=== PATIENT | male | born 1970 | race Caucasian/White ===

== ENCOUNTER → 2020-05-28 | Outpatient (CLI) | payer OTHER, SELFPAY ==
[~2020-05-28] MED LIST: ASPIR-LOW81 MG PO; FLECAINIDE ACET50 MG PO; FLONASE 0.05% N16 GM; HYDROCHLOROTH12.5 MG PO; METAMUCIL PACK3.4 GM PO; METOPROLOL TART25 MG PO; NAPROSYN500 MG PO; NITROSTAT0.4 MG SL; PREVACID30 MG PO; PROAIR HFA8.5 GM INH; RANEXA500 MG PO
== END ==
LOC: HEART CORB 12:33
DX: I25.10 Atherosclerotic heart disease of native coronary artery without angina pectoris (principal); I08.0 Rheumatic disorders of both mitral and aortic valves; R07.89 Other chest pain; I77.819 Aortic ectasia, unspecified site
CPT/HCPCS: 93306